=== PATIENT | male | born 1975 | race Caucasian/White ===

== ENCOUNTER 2020-04-29 14:00 | Emergency (ER) | payer MEDICAID, SELFPAY ==
[2020-04-29 14:00] VITALS: BP 134/87; PULSE 73; RESP 16; TEMP 36.9; O2SAT 98; BMI 45.6
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
[2020-04-29] MEDS: Morphine 4 MG/ML Syringe IM (14:11)
[2020-04-29] MEDS: Ondansetron 4 MG/2 ML Vial IV (14:11)
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
[2020-04-29] MEDS: fentaNYL 100 MCG/2 ML Ampul 50 MCG IV (14:47)
[2020-04-29 15:00] VITALS: BP 147/83; PULSE 78; RESP 14; O2SAT 99
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
--- NOTE | 2020-04-29 15:18 | NURSING ---
CALLED [facility]YSIC[facility] ETA IS 30 TO 45.
[2020-04-29] MEDS: Cefazolin 2 GM in 0.9% Normal Saline 100 ML IV (15:24)
--- NOTE | 2020-04-29 15:32 | NURSING ---
[facility] ETA IS 15 MIN
[2020-04-29 15:52] VITALS: BP 143/97; PULSE 73; RESP 18; O2SAT 97
== END 2020-04-29 15:58 | disposition short-term general hospital (02) ==
PROVIDERS: Emergency Provider Emergency Medicine; PCP Student in an Organized Health Care Education/Training Program
DX: S01.01XA Laceration without foreign body of scalp, initial encounter (principal); S52.201A Unspecified fracture of shaft of right ulna, initial encounter for closed fracture; F17.200 Nicotine dependence, unspecified, uncomplicated; V89.2XXA Person injured in unspecified motor-vehicle accident, traffic, initial encounter
CPT/HCPCS: 29105; 70450; 72125; 73090; 96365; 96372; 96374; 96375; 99285; J7030; A4216; J2405